=== PATIENT | female | born 1960 | race Caucasian/White ===

== ENCOUNTER → 2020-07-11 10:05 | Outpatient (BNVA) | payer BC, SELFPAY | PROVIDERS: Family Provider Family Medicine; Visit Provider Internal Medicine | DX: E03.9 Hypothyroidism, unspecified (principal); E11.65 Type 2 diabetes mellitus with hyperglycemia; F41.9 Anxiety disorder, unspecified; K75.81 Nonalcoholic steatohepatitis (NASH) | CPT/HCPCS: 99204 ==

== ENCOUNTER → 2020-07-20 15:39 | Outpatient (BNVA) | payer BC, SELFPAY | PROVIDERS: Family Provider Family Medicine; PCP Physician Assistant; Visit Provider Obstetrics & Gynecology | DX: N81.4 Uterovaginal prolapse, unspecified (principal) | CPT/HCPCS: 81000 ==

== ENCOUNTER → 2020-08-24 08:38 | Outpatient (BNVA) | payer BC, SELFPAY | PROVIDERS: Family Provider Family Medicine; PCP Physician Assistant; Visit Provider Obstetrics & Gynecology | DX: Z11.59 Encounter for screening for other viral diseases (principal) | CPT/HCPCS: 87635 ==

== ENCOUNTER 2020-08-29 12:53 | Observation (INO) | payer BC, SELFPAY ==
[2020-08-27 11:35] VITALS: BMI 29.2
[2020-08-27 12:05] LABS: Basophils # 0.1 10^3/uL (0.0-0.1); Basophils % 0.6 %; Eosinophils # 0.3 10^3/uL (0.0-0.8); Eosinophils % 2.8 %; Hemoglobin 14.6 g/dL (11.5-15.3); Lymphocytes # 3.1 10^3/uL (0.8-4.8); Lymphocytes % 35.6 %; Mean Corpuscular HGB Conc 31.1 g/dL (30.0-36.0); Mean Corpuscular Hemoglobin 29.3 pg (28.0-34.0); Mean Corpuscular Volume 94.4 fL (81-99); Mean Platelet Volume 10.7 fL (7.4-10.4); Monocytes # 0.5 10^3/uL (0.2-0.9); Neutrophils # 4.79 10^3/uL (1.8-7.7); Neutrophils % 54.7 %; Nucleated Red Blood Cells % 0 %; Platelet Count 277 10^3/cmm (130-400); Red Blood Count 4.98 10^6/uL (4.1-5.3); Red Cell Distribution Width 13.2 % (12.1-15.1); White Blood Count 8.8 10^3/uL (4.0-10.0)
--- NOTE | 2020-08-27 12:11 | P.ANESASSM_ITS ---
Pre-Anesthetic Assessment Pre-Anesthetic Assessment: Height/Weight: Height 1.7 m Weight 84.822 kg Preop Diagnosis: POP-Q stage 4 cystocele Proposed Procedure: Operation Date: 08/29/20 09:50 Proposed Procedures p Anterior Repair [id number] M81.10(Not Applicable) - Maged Nieto MD s Midurethral single incision sling(Not Applicable) - Maged Nieto MD s Laparoscopic Uterosacral Ligament Suspen(Not Applicable) - Maged Nieto MD Was Beta Camilla taken within 24 hours: N/A Social: Social History: No alcohol and No tobacco Exam: Pre-Anes Outpt Exam: alert and oriented x 3 Airway: Submandibular: WNL Cervical ROM: WNL MP: 2 Pulmonary: Pulmonary: Sleep apnea CV/HEM: CV/HEM: None reported : Comments: Cystoceole Hepatic: Hepatic: None reported GI: GI: None reported Metabolic: Metabolic: DM and Thyroid Musc/skel: Musc/skel: None reported Neuropsych: Neuropsych: None reported Anesthetic Plan: ASA status: 2 Anesthesia: General PFSH Anesthesia PFSH: Medical History Diabetes mellitus Elevated TSH Hypercholesteremia Mood swings Surgical History H/O hysterectomy with oophorectomy H/O: hysterectomy Family History Mother COPD (chronic obstructive pulmonary disease) Diabetes Father Diabetes Hypertension Grandmother Stroke Grandmother Cancer colon skin Grandfather Stroke Social History (Updated 08/27/20 @ 08:58 by Linda Murrieta RN) Smoking and tobacco status: never smoked Alcohol intake: current Alcohol intake frequency: holidays/special occasions only Substance/Drug Use: never Data Anesthesia CBC & Chem 7: 08/27/20 11:25 08/27/20 11:25 Other Labs: Laboratory Results - last 48 hr 08/27/20 11:25 WBC 8.8 RBC 4.98 Hgb 14.6 Hct 47.0 MCV 94.4 MCH 29.3 MCHC 31.1 RDW 13.2 Plt Count 277 MPV 10.7 H Neut % (Auto) 54.7 Lymph % (Auto) 35.6 [place] % (Auto) 6.0 Eos % (Auto) 2.8 Baso % (Auto) 0.6 Neut # (Auto) 4.79 Lymph # (Auto) 3.1 [place] # (Auto) 0.5 Eos # (Auto) 0.3 Baso # (Auto) 0.1 Nucleated RBC % (auto) 0 Nucleated RBCs # 0.0 Cardiac Studies: No Data to Display
[2020-08-27 12:23] LABS: Alanine Aminotransferase 26 U/L (0-33); Albumin Level 4.5 g/dL (3.5-5.2); Alkaline Phosphatase 104 IU/L (35-105); Anion Gap 20.6 (5-19); Aspartate Amino Transferase 23 U/L (0-32); Blood Urea Nitrogen 12 mg/dL (6-20); Calcium 9.5 mg/dL (8.5-10.5); Carbon Dioxide 21 mmol/L (22-29); Chloride 102 mmol/L (98-107); Globulin 3.5 g/dL (1.3-4.6); Glomerular Filtration Rate 127.2 mL/min (90-130); Glucose 229 mg/dL (65-115); Osmolality Calculated 297 mOsm/kg (285-295); Potassium 3.6 mmol/L (3.5-5.1); Sodium 140 mmol/L (136-145); Total Bilirubin 0.4 mg/dL (0.15-1.2)
[2020-08-27 13:29] LABS: Protein Urine Neg (Negative); Urine Appearance SL Hazy (CLEAR); Urine Color Straw (Yellow); pH Urine 5 (5-7)
[2020-08-27 13:30] LABS: Add Urine Microscopic? YES; Bilirubin Urine Neg (Negative); Blood Urine Neg (Negative); Glucose Urine UA 4+ (Normal); Ketones Urine Negative (Negative); Leukocyte Esterase Urine Negative (Negative); Nitrate Urine Negative (Negative); Urobilinogen Urine Norm (Negative)
[2020-08-27 13:35] LABS: Add Urine Culture? No; Bacteria Urine 2+ /hpf; Mucus Urine TRACE /hpf; RBC Urine 0-4 /hpf (0-2); Squamous Epithelial Cell Urine 0-4 /hpf (0-5); WBC Urine 0-4 /hpf (0-5)
[2020-08-29] VITALS (14 sets, daily range): BP systolic 100–127; BP diastolic 59–82; PULSE 64–75; RESP 12–21; TEMP 36.3–36.9; O2SAT 91–99
--- NOTE | 2020-08-29 08:39 | ANES.PREANE2 ---
Pre-Anesthetic Assessment Pre-Anesthetic Assessment: Height/Weight: Height 1.7 m Weight 84.822 kg Preop Diagnosis: POP-Q stage 4 cystocele Proposed Procedure: Operation Date: 08/29/20 09:50 Proposed Procedures p Anterior Repair [id number] M81.10(Not Applicable) - Maged Nieto MD s Midurethral single incision sling(Not Applicable) - Maged Nieto MD s Laparoscopic Uterosacral Ligament Suspen(Not Applicable) - Maged Nieto MD Last intake: Intake Last Liquid Date 08/28/20 Last Liquid Time 20:00 Last Solid Date 08/28/20 Last Solid Time 20:00 PFSH Anesthesia PFSH: Medical History Diabetes mellitus Elevated TSH Hypercholesteremia Mood swings Surgical History H/O hysterectomy with oophorectomy H/O: hysterectomy Family History Mother COPD (chronic obstructive pulmonary disease) Diabetes Father Diabetes Hypertension Grandmother Stroke Grandmother Cancer colon skin Grandfather Stroke Social History (Updated 08/27/20 @ 08:58 by Linda Murrieta RN) Smoking and tobacco status: never smoked Alcohol intake: current Alcohol intake frequency: holidays/special occasions only Data Anesthesia CBC & Chem 7: 08/27/20 11:25 08/27/20 11:25 Other Labs: Laboratory Results - last 48 hr 08/27/20 08/27/20 08/27/20 11:25 11:25 11:25 WBC 8.8 RBC 4.98 Hgb 14.6 Hct 47.0 MCV 94.4 MCH 29.3 MCHC 31.1 RDW 13.2 Plt Count 277 MPV 10.7 H Neut % (Auto) 54.7 Lymph % (Auto) 35.6 [place] % (Auto) 6.0 Eos % (Auto) 2.8 Baso % (Auto) 0.6 Neut # (Auto) 4.79 Lymph # (Auto) 3.1 [place] # (Auto) 0.5 Eos # (Auto) 0.3 Baso # (Auto) 0.1 Nucleated RBC % (auto) 0 Nucleated RBCs # 0.0 Sodium 140 Potassium 3.6 Chloride 102 Carbon Dioxide 21 L Anion Gap 20.6 H BUN 12 Creatinine 0.5 GFR Calculation 127.2 Glucose 229 H Calculated Osmolality 297 H Calcium 9.5 Total Bilirubin 0.4 AST 23 ALT 26 Alkaline Phosphatase 104 Total Protein 8.0 Albumin 4.5 Globulin 3.5 Urine Color Straw Urine Appearance Sl hazy Urine pH 5 Ur Specific [place] 1.010 Urine Protein Neg Urine Glucose (UA) 4+ H Urine Ketones Negative Urine Blood Neg Urine Nitrate Negative Urine Bilirubin Neg Urine Urobilinogen Norm Ur Leukocyte Esterase Negative Urine RBC 0-4 H Urine WBC 0-4 H Ur Squamous Epith Cells 0-4 H Amorphous Sediment Not Reportable Urine Bacteria 2+ H Urine Mucus Trace Blood Type Rho(D) Type Antibody Screen 08/27/20 11:25 WBC RBC Hgb Hct MCV MCH MCHC RDW Plt Count MPV Neut % (Auto) Lymph % (Auto) [place] % (Auto) Eos % (Auto) Baso % (Auto) Neut # (Auto) Lymph # (Auto) [place] # (Auto) Eos # (Auto) Baso # (Auto) Nucleated RBC % (auto) Nucleated RBCs # Sodium Potassium Chloride Carbon Dioxide Anion Gap BUN Creatinine GFR Calculation Glucose Calculated Osmolality Calcium Total Bilirubin AST ALT Alkaline Phosphatase Total Protein Albumin Globulin Urine Color Urine Appearance Urine pH Ur Specific [place] Urine Protein Urine Glucose (UA) Urine Ketones Urine Blood Urine Nitrate Urine Bilirubin Urine Urobilinogen Ur Leukocyte Esterase Urine RBC Urine WBC Ur Squamous Epith Cells Amorphous Sediment Urine Bacteria Urine Mucus Blood Type O Positive Rho(D) Type Positive Antibody Screen Negative Cardiac Studies: No Data to Display
[2020-08-29 08:43] LABS: Glucose Point of Care 208 mg/dL (70-110)
[2020-08-29] MEDS: sodium chloride 0.9% 1,000 ML 30 ML IV (08:46)
--- NOTE | 2020-08-29 10:08 | W.PM.OPSUD ---
Surgery/Procedure H&P Update DATE OF PROCEDURE: August 29, 2020 DATE H&P PERFORMED: 08/27/20 H&P UPDATE INFORMATION: I have reviewed H&P completed within last 30 days, I have examined patient prior to procedure and No changes to prior documentation PREOP DIAGNOSIS: POP-Q stage 4 cystocele PLANNED PROCEDURE: Operation Date: 08/29/20 09:50 Proposed Procedures p Anterior Repair [id number] M81.10(Not Applicable) - Maged Nieto MD s Midurethral single incision sling(Not Applicable) - Maged Nieto MD s Laparoscopic Uterosacral Ligament Suspen(Not Applicable) - Maged Nieto MD
--- NOTE | 2020-08-29 11:03 | P.ANESASSM_ITS ---
Pre-Anesthetic Assessment Pre-Anesthetic Assessment: Height/Weight: Height 1.7 m Weight 84.822 kg Preop Diagnosis: POP-Q stage 4 cystocele Proposed Procedure: Operation Date: 08/29/20 09:50 Proposed Procedures p Anterior Repair [id number] M81.10(Not Applicable) - MD wei Winters Midurethral single incision sling(Not Applicable) - MD wei Winters Laparoscopic Uterosacral Ligament Suspen(Not Applicable) - Maged Nieto MD Last intake: Intake Last Liquid Date 08/28/20 Last Liquid Time 20:00 Last Solid Date 08/28/20 Last Solid Time 20:00 Other Pertinent Information: No changes since seen and evaluated on Meds/Allergies Current Medications: Current Medications Generic Name Dose Route Start Last Admin Trade Name Freq PRN Reason Stop Dose Admin Sodium Chloride 1,000 mls @ 30 ml s/hr 08/29/20 08:30 08/29/20 08:46 Sodium Chloride 0.9% IV 08/30/20 08:29 30 mls/hr .Q24H PAYAL Administration PFSH Anesthesia PFSH: Medical History Diabetes mellitus Elevated TSH Hypercholesteremia Mood swings Surgical History H/O hysterectomy with oophorectomy H/O: hysterectomy Family History Mother COPD (chronic obstructive pulmonary disease) Diabetes Father Diabetes Hypertension Grandmother Stroke Grandmother Cancer colon skin Grandfather Stroke Social History (Updated 08/27/20 @ 08:58 by Linda Murrieta, RN) Smoking and tobacco status: never smoked Alcohol intake: current Alcohol intake frequency: holidays/special occasions only Data Anesthesia CBC & Chem 7: 08/27/20 11:25 08/27/20 11:25 Other Labs: Laboratory Results - last 48 hr 08/27/20 08/27/20 08/27/20 11:25 11:25 11:25 WBC 8.8 RBC 4.98 Hgb 14.6 Hct 47.0 MCV 94.4 MCH 29.3 MCHC 31.1 RDW 13.2 Plt Count 277 MPV 10.7 H Neut % (Auto) 54.7 Lymph % (Auto) 35.6 [place] % (Auto) 6.0 Eos % (Auto) 2.8 Baso % (Auto) 0.6 Neut # (Auto) 4.79 Lymph # (Auto) 3.1 [place] # (Auto) 0.5 Eos # (Auto) 0.3 Baso # (Auto) 0.1 Nucleated RBC % (auto) 0 Nucleated RBCs # 0.0 Sodium 140 Potassium 3.6 Chloride 102 Carbon Dioxide 21 L Anion Gap 20.6 H BUN 12 Creatinine 0.5 GFR Calculation 127.2 Glucose 229 H POC Glucose Calculated Osmolality 297 H Calcium 9.5 Total Bilirubin 0.4 AST 23 ALT 26 Alkaline Phosphatase 104 Total Protein 8.0 Albumin 4.5 Globulin 3.5 Urine Color Straw Urine Appearance Sl hazy Urine pH 5 Ur Specific [place] 1.010 Urine Protein Neg Urine Glucose (UA) 4+ H Urine Ketones Negative Urine Blood Neg Urine Nitrate Negative Urine Bilirubin Neg Urine Urobilinogen Norm Ur Leukocyte Esterase Negative Urine RBC 0-4 H Urine WBC 0-4 H Ur Squamous Epith Cells 0-4 H Amorphous Sediment Not Reportable Urine Bacteria 2+ H Urine Mucus Trace Blood Type Rho(D) Type Antibody Screen 08/27/20 08/29/20 11:25 08:40 WBC RBC Hgb Hct MCV MCH MCHC RDW Plt Count MPV Neut % (Auto) Lymph % (Auto) [place] % (Auto) Eos % (Auto) Baso % (Auto) Neut # (Auto) Lymph # (Auto) [place] # (Auto) Eos # (Auto) Baso # (Auto) Nucleated RBC % (auto) Nucleated RBCs # Sodium Potassium Chloride Carbon Dioxide Anion Gap BUN Creatinine GFR Calculation Glucose POC Glucose 208 Calculated Osmolality Calcium Total Bilirubin AST ALT Alkaline Phosphatase Total Protein Albumin Globulin Urine Color Urine Appearance Urine pH Ur Specific [place] Urine Protein Urine Glucose (UA) Urine Ketones Urine Blood Urine Nitrate Urine Bilirubin Urine Urobilinogen Ur Leukocyte Esterase Urine RBC Urine WBC Ur Squamous Epith Cells Amorphous Sediment Urine Bacteria Urine Mucus Blood Type O Positive Rho(D) Type Positive Antibody Screen Negative Cardiac Studies: No Data to Display
[2020-08-29] MEDS: estrogens Conjugated Cream 30 gm 1 APPLIC VAGINAL (11:32)
--- NOTE | 2020-08-29 12:27 | P.OP_ITS ---
Operative Report Date of procedure: August 29, 2020 Pre-op Diagnosis: POP-Q stage 4 cystocele Post-op diagnosis: same Procedure Done: Anterior colporrhaphy augmented with allograft with mid urethral sling and bilateral sacrospinous ligament fixation. Pathology: none sent Surgeon: Maged May MD Anesthesia: General Estimated blood loss (mL): 100 IV fluids (mL): 500 Urine output (mL): 400 Complications: None Findings: Cystocele stage IV Condition: stable Disposition: PACU Brief History: 59-year-old female post hysterectomy developed a cystocele stage IV associated with urinary incontinence Procedure: After obtaining informed consent, the patient was taken to the operating room and placed in the supine position, given general anesthesia, and prepped and draped in sterile fashion. The abdomen, vulva and vagina were pre pped and draped in a sterile manner. A time out procedure was performed. A vertical midline incision was made beneath the midurethra, nearly 1.5 cm length. Careful submucosal dissection was performed bilaterally up to the interior portion of the inferior pubic ramus. The insertion of adductor longus tendon on the patient?s pubic ramus was identified as reference land angelique. Palpated the notch along the internal edge of ischiopubic ramus where the adductor longus tendon and the inferior pubic ramus meet. The Altis single incision sling (SIS) was selected. With thin porcine graft the mesh of the sling was lined anteriorly and posteriorly with the graft. Then the needle of the SIS inserted aiming at the location of this notch. One of the integrated self- fixating tips place onto the needle by sliding it over the end of the needle. The needle/sling assembly was inserted toward the location of identified reference notch making sure that the flat of the handle is perpendicular to the desired path. The needle was tracked along the posterior surface of the ischiopubic ramus until the midline angelique on the mesh is approximately at the midline position under the urethra. The needle was removed and the same was repeated on the contralateral side until the appropriate sling tension under the urethra was achieved ensuring that the mesh lays flat. The vaginal mucosa was then injected in the midline with normal saline. The vaginal mucosa was scored in the midline with the Bovie approximately 1 cm medial to the urethral meatus to 1 cm distal to the [vaginal cuff/cervix]. This vaginal mucosa was then undermined and then incised in the midline with the Metzenbaum scissors. The lateral aspects of the vaginal mucosa were then grasped with the Allis clamps and the vaginal mucosa was then dissected off the underlying fascia with the Metzenbaum scissors. Again, there was noted to be quite a bit of oozing at the incision, which was controlled with cautery. After adequate dissection was performed, bilaterally. The Colpoplast Allograft is modified at time of application to fit spacea, 4 x 4 cm piece . Colpoplast Allograft placed in front of cystocele ready to be implanted with the Basement Membrane facing the vagina mucosa. Suture is placed at distal end of graft and placed towards vaginal cuff. Final suture is placed on proximal portion of the graft to complete the placement overlying the bladder. Then Interrupted vertical mattress sutures of 0 Vicryl were used to elevate the cystocele superiorly. The excessive vaginal mucosa was then trimmed with the Metzenbaum scissors. A finger is inserted through the incision in the posterior vaginal mucosa, dissecting out the rectovaginal space (RVS). The right rectal pillar (RRP) is identified. The rectal pillar can be bluntly perforated either with the [finger or with the tip of a long Miranda clamp]. A [Bresengy-Navratil] retractor is used for exposing the rectovaginal space in order to enter the pararectal space with retraction of the cardinal ligament, vagina, and rectum. Displacing the rectum to the left and the cardinal ligament and ureter anteriorly. A sponge dissector is used to bluntly dissect the sacrospinous ligament removing areolar tissue. The ischial spine was palpated directly, and a area approximately 2 cm medial to the spine was selected for insertion of the Anchorsure transvaginal sacrospinous fixation system. One end of the suture of Anchoresure system inserted through the sacrospinous ligament is placed through the muscular layer of the vagina. In a similar manner, the second suture is placed. The opposite end of the suture in the sacrospinous ligament is left free and held on a small hemostat. Then traction on this suture will draw the vaginal vault directly to the ligament, where a square knot affixes it to the sacrospinous ligament. After the angelina stich is tied the second safety stich is tied. Then the colporrhaphy/vaginal repair is carried out in routine fashion. Then the [place] catheter was removed and cystoscope was inserted. The bladder was filled with sterile water. Complete evaluation of the bladder mucosa was performed noting no lacerations, dimpling, tears, bleeding of the mucosa or muscular layers. Both ureteral orifices were identified. Prompt excretion of urine from both ureteral orifices was noted. Cystoscope was withdrawn. The [place] catheter was replaced. Excellent hemostasis was obtained. A vaginal pack is placed overnight as postoperative support for the vaginal tissues after graft placement and closure of vaginal incisions. Sponge, lap, needle, and instrument counts were correct times three. The patient was taken to the recovery room, awake and in stable condition. Associated Problem List Diagnoses (1) POP-Q stage 4 cystocele:
--- NOTE | 2020-08-29 13:27 | ANE.PACU2 ---
Inpatient post-anesthesia follow up: Airway intact: Yes Vital signs: Temperature 98.5 F Pulse Rate 70 Respiratory Rate 16 Blood Pressure 112/82 Pulse Oximetry 95 Oxygen Delivery Me thod Room Air Oxygen Flow Rate 8 Fraction of Inspir ed Oxygen Hydration adequate: Yes Nausea and vomiting: No Pain level: 3 Mental status: Baseline
[2020-08-29] MEDS: metformin 850 mg Tablet PO ×2 (16:47→20:54)
[2020-08-29] MEDS: dextrose 5%-lactated ringers 1,000 ML 125 ML IV (16:49)
[2020-08-29] MEDS: acetaminophen 325 mg Tablet 650 MG PO (17:33)
[2020-08-29] MEDS: ketorolac 30 mg/mL INJ IVP (20:54)
[2020-08-30] MEDS: dextrose 5%-lactated ringers 1,000 ML 125 ML IV (00:10)
[2020-08-30 04:00] VITALS: BP 91/58; PULSE 79; RESP 14; O2SAT 96
[2020-08-30] MEDS: ketorolac 30 mg/mL INJ IVP (04:15)
[2020-08-30 05:22] LABS: Hematocrit 34.8 % (37.0-47.0); Hemoglobin 10.9 g/dL (11.5-15.3); Mean Corpuscular HGB Conc 31.3 g/dL (30.0-36.0); Mean Corpuscular Hemoglobin 29.9 pg (28.0-34.0); Mean Corpuscular Volume 95.3 fL (81-99); Mean Platelet Volume 10.4 fL (7.4-10.4); Platelet Count 200 10^3/cmm (130-400); Red Blood Count 3.65 10^6/uL (4.1-5.3); Red Cell Distribution Width 13.2 % (12.1-15.1); White Blood Count 11.8 10^3/uL (4.0-10.0)
--- NOTE | 2020-08-30 05:45 | PC.NURSE ---
C[place]ola and vaginal packing removed at this time. Minimal bleeding noted on dressing. Patient tolerated procedure well and instructed to notify this nurse when needing to void.
[2020-08-30] MEDS: venlafaxine 75 mg Tablet PO (09:01)
[2020-08-30] MEDS: pioglitazone 30 mg Tablet 15 MG PO (09:01)
[2020-08-30] MEDS: sitagliptin 100 mg Tablet PO (09:01)
[2020-08-30] MEDS: metformin 850 mg Tablet PO (09:01)
[2020-08-30] MEDS: multivitamin therapeutic Tablet 1 TAB PO (09:03)
[2020-08-30] MEDS: levothyroxine 100 mcg Tablet PO (09:03)
[2020-08-30] MEDS: atorvastatin 40 mg Tablet PO (09:03)
[2020-08-30 09:54] LABS: Glucose Point of Care 238 mg/dL (70-110)
[2020-08-30 10:00] VITALS: BP 116/72; PULSE 75; RESP 16; TEMP 36.5; O2SAT 96
--- NOTE | 2020-08-30 11:21 | ANE.PACU2 ---
Inpatient post-anesthesia follow up: Airway intact: Yes Vital signs: Temperature 97.7 F Pulse Rate 75 Respiratory Rate 16 Blood Pressure 116/72 Pulse Oximetry 96 Oxygen Delivery Me thod Room Air Oxygen Flow Rate 8 Fraction of Inspir ed Oxygen Hydration adequate: Yes Nausea and vomiting: No Pain level: 1 Mental status: Baseline
--- NOTE | 2020-08-30 12:08 | PM.OBGYDC ---
Discharge Providers [employer]ACH[employer] BACK TENDER Date of Admission: 08/29/20 12:53 Date of Discharge: 08/30/20 Attending Provider at Admission: Maged Nieto MD Attending Provider at Discharge: Maged Nieto MD Primary Care Provider: Miranda Villarreal Diagnoses at Discharge Discharge Diagnosis (1) POP-Q stage 4 cystocele: Status: Acute Reason for Visit Reason for Visit: Cystocele pop Q4 Hospital Course Hospital Course 59-year-old female post hysterectomy with cystocele stage IV with urinary incontinence. was admitted for planned anterior colporrhaphy augmented with allograft week mid urethral sling and sacrospinous ligament fixation. Procedures were performed without complication. Postop observation was uneventful. PVR within normal limits. She is ambulating without difficulty. Tolerating diet well. She is hemodynamically stable and afebrile. Physical Exam Narrative: EXAM NARRATIVE: GA: Alert and oriented ?3. HEENT: WNL. Heart: Regular rate and rhythm. Lungs: Clear to auscultation bilaterally. Abdomen: Bowel sounds present, nontender. MAIL CARRIER: No bleeding. Extremities: No edema, no cyanosis, no calves pain. Urinary Catheter Management^: [place]: Cath Placed During This Visit: yes Urinary Catheter Date of Insertion: 08/29/20 Urinary Catheter Time of Insertion: 11:00 Discharge Data Data Completed and Pending: Labs from last 24 hours 08/30/20 08/30/20 09:50 05:00 WBC 11.8 H RBC 3.65 L Hgb 10.9 L Hct 34.8 L MCV 95.3 MCH 29.9 MCHC 31.3 RDW 13.2 Plt Count 200 MPV 10.4 POC Glucose 238 Vitals: Last Vital Signs Temp 97.7 F 08/30/20 10:00 Pulse 75 08/30/20 10:00 Resp 16 08/30/20 10:00 BP 116/72 08/30/20 10:00 Pulse Ox 96 08/30/20 10:00 Discharge Plan Discharge Patient Disposition: Home Condition: Stable Prescriptions: [place] 5-325 mg tablet 1 tab PO Q4H PRN (Reason: pain) Qty: 30 RF: 0 ferrous sulfate 325 mg (65 mg iron) tablet 325 mg PO BID Qty: 60 RF: 0 ibuprofen 800 mg tablet 800 mg PO TID PRN (Reason: pain) Qty: 60 RF: 0 Continued Januvia 100 mg tablet 100 mg PO DAILY RF: 0 Farxiga 10 mg tablet 10 mg PO DAILY RF: 0 atorvastatin [Lipitor] 40 mg tablet 40 mg PO DAILY RF: 0 multivitamin Tablet 1 tab PO DAILY RF: 0 venlafaxine 75 mg tablet 75 mg PO DAILY RF: 0 pioglitazone 15 mg tablet 15 mg PO DAILY Qty: 30 RF: 3 levothyroxine 100 mcg capsule 100 mcg PO DAILY Qty: 30 RF: 5 metformin 850 mg tablet 850 mg PO TID Qty: 90 RF: 5 Stool Softener 50 mg Capsule 50 mg PO DAILY PRN (Reason: Constipation) RF: 0 Discharge Orders: Discharge Order (Routine); Ordered 08/30/20 Ordered By: Maged Nieto Referrals: Maged Nieto MD [Physician] - 2 weeks Discharge Diet: As Directed Discharge Activity: Increase activity as tolerated Patient Instructions: Anterior Vaginal Repair (DC), Bladder Sling Procedures (DC) Activity Restrictions/Additional Instructions: 1. Please call [facility] on next working day to make your post-operative appointment in 2 weeks. 2. Please stay home until you come back to the clinic on first post-operative check up. 3. Please follow instructions on your medications CAREFULLY. 4. If you have abdominal incision, do not cover it unless dressing is necessary because of drainage. OK to shower, but avoid bath. Leave steri-strips until they fall off. If they are still on one week after surgery, you may remove them. 5. If you had vaginal surgery, your doctor may instuct you to take SITZ bath. 6. Yellow, blood tinged odorous vaginal discharge is usually normal after hysterectomy or vaginal surgeries. 7. No sexual intercourse, tampons, or douches until you are completely released from the post-operative care. 8. Avoid constipation by eating right and maybe using some Metamucil or Milk of Magnesia. 9. All presciption refills are given during the working hours. Please do no wait till it runs out. Call the clinic at [phone] before your medication runs out. The clinic will get in touch with your doctor to prescribe medications if necessary. 10. Please remain within 40 mile radius from our hospital because emergencies do happen now and then during the post-operative period. 11. If you have stairs at home, take one step at a time slowly and minimize the number of trips. It helps to stay in one floor for the next few days. No lifting except what you can lift by one hand until you are released from the post-operative care. 12. Driving is discouraged until you are well healed. It may be 3-4 weeks before you feel strong enough to drive. You should be able to turn and look throught the rear window without pain and you should be able to push the brake pedal very hard without pain before you drive. No fast rules, but SAFETY should be your primary concern. DO NOT drive if you are on sedating medications such as narcotics. 13. Call the clinic (during working hours) to make urgent appointment or go to the Emergency room, if any of the following occurs: i. Vaginal bleeding becomes heavy, more than a period. ii. Incision becomes red and sore, or drains pus. iii. Your temperature is over 100.4 or you have chill. iv. IV site becomes red and swollen (a little ``knot?? is usually OK) v. Persistent nausea and vomiting vi. Persistent constipation or diarrhea vii. Rash or allergic reaction to medications. Discharge Attestations [employer] TENDER Time Spent in Discharge Care*: greater than 30 min Coding Level of Care Code Acute Public Affairs Director for g Fwd Diagnoses POP-Q stage 4 cystocele N81.10
[2020-08-30 12:26] VITALS: BP 121/75; PULSE 99; RESP 16; TEMP 36.8
== END 2020-08-30 12:36 | disposition home or self-care (01) ==
LOC: OBGYN 12:53
PROVIDERS: Admitting Provider Obstetrics & Gynecology; PCP Physician Assistant; Visit Provider Obstetrics & Gynecology
PROC: 0JQC0ZZ Repair Pelvic Region Subcutaneous Tissue and Fascia, Open Approach (ICD-10-PCS; CPT 57240; principal; 2020-08-29 09:50)
PROC: (CPT 57288; 2020-08-29 09:50)
PROC: (CPT 57283; 2020-08-29 09:50)
DX: N81.10 Cystocele, unspecified (principal); E11.9 Type 2 diabetes mellitus without complications; E07.9 Disorder of thyroid, unspecified; E78.00 Pure hypercholesterolemia, unspecified; R32 Unspecified urinary incontinence; Z90.710 Acquired absence of both cervix and uterus
CPT/HCPCS: 57260; 57267; 12345; 36415; 36416; 51798; 80053; 81001; 82962; 85025; 85027; 86850; 86900; 96361; 96365; 96375; C1713; C1762; G0378; J0690; J1885; J2405; J2704; J3010; J3490; J7030

== ENCOUNTER → 2020-09-12 14:11 | Outpatient (BNVA) | payer BC, SELFPAY | PROVIDERS: PCP Physician Assistant; Visit Provider Internal Medicine | DX: E03.9 Hypothyroidism, unspecified (principal); E11.65 Type 2 diabetes mellitus with hyperglycemia; F41.9 Anxiety disorder, unspecified; K75.81 Nonalcoholic steatohepatitis (NASH) | CPT/HCPCS: 99214 ==

== ENCOUNTER → 2020-12-12 08:23 | Outpatient (BNVA) | payer BC, SELFPAY | PROVIDERS: PCP Physician Assistant; Visit Provider Internal Medicine | DX: E03.9 Hypothyroidism, unspecified (principal); E11.65 Type 2 diabetes mellitus with hyperglycemia; K75.81 Nonalcoholic steatohepatitis (NASH) | CPT/HCPCS: 99214 ==

== ENCOUNTER → 2021-08-22 10:03 | Outpatient (BNVA) | payer BC, SELFPAY | PROVIDERS: PCP Physician Assistant; Visit Provider Internal Medicine | DX: E11.9 Type 2 diabetes mellitus without complications (principal); E78.00 Pure hypercholesterolemia, unspecified; E03.9 Hypothyroidism, unspecified; K75.81 Nonalcoholic steatohepatitis (NASH); R00.2 Palpitations; Z79.84 Long term (current) use of oral hypoglycemic drugs | CPT/HCPCS: 99213 ==

== ENCOUNTER 2021-09-26 15:10 | Outpatient (CLI) | payer BC, SELFPAY ==
[2021-09-26 16:01] LABS: Estmated Average Glucose 169; Free T4 Free Thyroxine 1.25 ng/dL (0.82-1.77); Hemoglobin A1C 7.5 % (4.0-6.0); Thyroid Stimulating Hormone 1.34 uIU/mL (0.27-4.20)
== END 2021-09-26 15:11 | disposition home or self-care (01) ==
LOC: LAB 15:16
PROVIDERS: PCP Physician Assistant; Visit Provider Internal Medicine
DX: E03.9 Hypothyroidism, unspecified (principal)
CPT/HCPCS: 83036; 84439; 84443

== ENCOUNTER 2022-02-10 10:39 | Outpatient (CLI) | payer BC, SELFPAY ==
[2022-02-10 12:20] LABS: Add Urine Microscopic? NO; Charge for UA Resulting for Rev
[2022-02-10 12:29] LABS: Bilirubin Urine Neg (Negative); Blood Urine Neg (Negative); Glucose Urine UA 4+ (Normal); Ketones Urine 1+ (Negative); Leukocyte Esterase Urine Negative (Negative); Nitrate Urine Negative (Negative); Protein Urine Neg (Negative); Urine Appearance Clear (CLEAR); Urine Color Yellow (Yellow); Urobilinogen Urine Norm (Negative); pH Urine 5 (5-7)
== END 2022-02-10 10:40 | disposition home or self-care (01) ==
PROVIDERS: PCP Physician Assistant; Visit Provider Internal Medicine
DX: E03.9 Hypothyroidism, unspecified (principal); E11.65 Type 2 diabetes mellitus with hyperglycemia; E78.00 Pure hypercholesterolemia, unspecified
CPT/HCPCS: 81003

== ENCOUNTER 2022-05-02 16:48 | Outpatient (CLI) | payer BC, SELFPAY ==
[2022-05-02 17:38] LABS: Estmated Average Glucose 209; Hemoglobin A1C 8.9 % (4.0-6.0)
[2022-05-02 17:42] LABS: Alanine Aminotransferase 32 U/L (0-33); Albumin Level 4.3 g/dL (3.5-5.2); Alkaline Phosphatase 115 IU/L (35-105); Anion Gap 19.6 (5-19); Aspartate Amino Transferase 26 U/L (0-32); Blood Urea Nitrogen 15 mg/dL (6-20); Calcium 9.2 mg/dL (8.5-10.5); Carbon Dioxide 22 mmol/L (22-29); Chloride 98 mmol/L (98-107); Chol HDL Ratio 3.66 mg/dL (0.0-4.40); Cholesterol 128 mg/dL (0-200); Globulin 3.4 g/dL (1.3-4.6); Glomerular Filtration Rate 102.3 mL/min (90-130); Glucose 193 mg/dL (65-115); HDL Cholesterol 35 mg/dL (60-100); LDL Cholesterol Calculated 27 mg/dL (50-129); LDL HDL Ratio 0.77 RATIO (0.00-3.22); Osmolality Calculated 288 mOsm/kg (285-295); Potassium 3.6 mmol/L (3.5-5.1); Sodium 136 mmol/L (136-145); Thyroid Stimulating Hormone 2.81 uIU/mL (0.27-4.20); Total Bilirubin 0.3 mg/dL (0.15-1.2); Total Protein 7.7 g/dL (6.6-8.7); Triglycerides 330 mg/dL (0-150)
[2022-05-02 20:36] LABS: Free T4 Free Thyroxine 1.26 ng/dL (0.82-1.77)
== END 2022-05-02 16:49 | disposition home or self-care (01) ==
LOC: LAB 16:50
PROVIDERS: PCP Physician Assistant; Visit Provider Internal Medicine
DX: E11.9 Type 2 diabetes mellitus without complications (principal)
CPT/HCPCS: 80053; 80061; 83036; 84439; 84443

== ENCOUNTER 2023-01-06 09:06 | Outpatient (CLI) | payer OTHER, SELFPAY ==
[2023-01-06 10:31] LABS: Estmated Average Glucose 206; Hemoglobin A1C 8.8 % (4.0-6.0)
[2023-01-06 10:34] LABS: Alanine Aminotransferase 28 U/L (0-33); Albumin Level 4.1 g/dL (3.5-5.2); Alkaline Phosphatase 83 U/L (35-105); Anion Gap 16.5 (5-19); Aspartate Amino Transferase 19 U/L (0-32); Blood Urea Nitrogen 13 mg/dL (8-23); Calcium 9.3 mg/dL (8.5-10.5); Carbon Dioxide 24 mmol/L (22-29); Chloride 104 mmol/L (98-107); Chol HDL Ratio 3.85 mg/dL (0.0-4.40); Cholesterol 131 mg/dL (0-200); Free T4 Free Thyroxine 1.52 ng/dL (0.82-1.77); Globulin 3.3 g/dL (1.3-4.6); Glomerular Filtration Rate 125.9 mL/min (90-130); Glucose 243 mg/dL (65-115); HDL Cholesterol 34 mg/dL (60-100); LDL Cholesterol Calculated 45 mg/dL (50-129); LDL HDL Ratio 1.32 RATIO (0.00-3.22); Osmolality Calculated 298 mOsm/kg (285-295); Potassium 4.5 mmol/L (3.5-5.1); Sodium 140 mmol/L (136-145); Thyroid Stimulating Hormone 0.39 uIU/mL (0.27-4.20); Total Bilirubin 0.7 mg/dL (0.15-1.2); Total Protein 7.4 g/dL (6.6-8.7); Triglycerides 260 mg/dL (0-150)
== END 2023-01-06 09:07 | disposition home or self-care (01) ==
LOC: LAB 09:11
PROVIDERS: PCP Physician Assistant; Visit Provider Internal Medicine
DX: E03.9 Hypothyroidism, unspecified (principal); E11.65 Type 2 diabetes mellitus with hyperglycemia; E78.00 Pure hypercholesterolemia, unspecified; K75.81 Nonalcoholic steatohepatitis (NASH)
CPT/HCPCS: 36415; 80053; 80061; 83036; 84439; 84443

== ENCOUNTER 2023-04-17 08:43 | Outpatient (CLI) | payer OTHER, SELFPAY ==
[2023-04-17 09:20] LABS: Estmated Average Glucose 235; Hemoglobin A1C 9.8 % (4.0-6.0)
[2023-04-17 09:36] LABS: Alanine Aminotransferase 24 U/L (0-33); Albumin Level 3.9 g/dL (3.5-5.2); Alkaline Phosphatase 103 U/L (35-105); Blood Urea Nitrogen 10 mg/dL (8-23); Calcium 9.2 mg/dL (8.5-10.5); Carbon Dioxide 26 mmol/L (22-29); Chol HDL Ratio 5.82 mg/dL (0.0-4.40); Cholesterol 198 mg/dL (0-200); Free T4 Free Thyroxine 1.35 ng/dL (0.82-1.77); Globulin 3.1 g/dL (1.3-4.6); Glomerular Filtration Rate 162.8 mL/min (90-130); Glucose 247 mg/dL (65-115); HDL Cholesterol 34 mg/dL (60-100); Thyroid Stimulating Hormone 0.95 uIU/mL (0.27-4.20); Total Bilirubin 0.4 mg/dL (0.15-1.2); Triglycerides 434 mg/dL (0-150)
[2023-04-17 09:40] LABS: Creatinine Urine, Random 49 mg/dL (28-217); Microalbum Creatinine Ratio Ur 20 mg/dL (0-20); Microalbumin Random Urine 1 ug/dL (0-20)
[2023-04-17 09:40] LABS: Aspartate Amino Transferase 18 U/L (0-32); Potassium 4.3 mmol/L (3.5-5.1)
[2023-04-17 10:20] LABS: Anion Gap 16.3 (5-19); LDL Cholesterol Direct 103 mg/dL (0-100)
[2023-04-17 10:23] LABS: Chloride 101 mmol/L (98-107); Osmolality Calculated 295 mOsm/kg (285-295); Sodium 139 mmol/L (136-145)
[2023-04-18 12:55] LABS: T3 Total 95 ng/dL (76-181)
== END 2023-04-17 08:44 | disposition home or self-care (01) ==
PROVIDERS: PCP Physician Assistant; Visit Provider Internal Medicine
DX: E11.65 Type 2 diabetes mellitus with hyperglycemia (principal); E78.00 Pure hypercholesterolemia, unspecified
CPT/HCPCS: 36415; 80053; 80061; 82044; 83036; 83721; 84439; 84443; 84480

== ENCOUNTER → 2023-04-20 14:46 | Outpatient (BNVA) | payer OTHER, SELFPAY | PROVIDERS: PCP Physician Assistant; Visit Provider Internal Medicine | DX: E11.65 Type 2 diabetes mellitus with hyperglycemia (principal); E03.9 Hypothyroidism, unspecified; K75.81 Nonalcoholic steatohepatitis (NASH); E78.00 Pure hypercholesterolemia, unspecified; Z79.890 Hormone replacement therapy; Z79.84 Long term (current) use of oral hypoglycemic drugs; Z79.4 Long term (current) use of insulin | CPT/HCPCS: 99214 ==

== ENCOUNTER → 2023-07-30 10:38 | Outpatient (BNVA) | payer OTHER, SELFPAY | PROVIDERS: PCP Physician Assistant; Visit Provider Internal Medicine | DX: E03.9 Hypothyroidism, unspecified (principal); K75.81 Nonalcoholic steatohepatitis (NASH); E78.00 Pure hypercholesterolemia, unspecified; E11.65 Type 2 diabetes mellitus with hyperglycemia; Z79.4 Long term (current) use of insulin; Z79.84 Long term (current) use of oral hypoglycemic drugs; Z79.890 Hormone replacement therapy | CPT/HCPCS: 99214 ==

== ENCOUNTER → 2024-03-11 10:37 | Outpatient (BNVA) | payer OTHER, SELFPAY | PROVIDERS: PCP Family Medicine; Visit Provider Internal Medicine | DX: E03.9 Hypothyroidism, unspecified (principal); K75.81 Nonalcoholic steatohepatitis (NASH); E78.00 Pure hypercholesterolemia, unspecified; E11.65 Type 2 diabetes mellitus with hyperglycemia; Z79.84 Long term (current) use of oral hypoglycemic drugs; Z79.4 Long term (current) use of insulin; Z79.890 Hormone replacement therapy | CPT/HCPCS: 99214 ==

== ENCOUNTER → 2024-09-30 12:01 | Outpatient (BNVA) | payer OTHER, SELFPAY | PROVIDERS: PCP Family Medicine; Visit Provider Family Medicine | DX: E11.9 Type 2 diabetes mellitus without complications (principal); E78.00 Pure hypercholesterolemia, unspecified; E03.9 Hypothyroidism, unspecified; E11.65 Type 2 diabetes mellitus with hyperglycemia | CPT/HCPCS: 80053; 80061; 82043; 83036; 84439; 84443 ==

== ENCOUNTER → 2025-03-30 09:10 | Outpatient (BNVA) | payer SELFPAY | PROVIDERS: PCP Family Medicine; Visit Provider Dermatology | DX: Z01.89 Encounter for other specified special examinations (principal) | CPT/HCPCS: 80053; 80061; 83036; 84443; 85025 ==

== ENCOUNTER → 2025-06-30 10:31 | Outpatient (BNVA) | payer OTHER, SELFPAY | PROVIDERS: PCP Family Medicine; Visit Provider Family Medicine | DX: E11.65 Type 2 diabetes mellitus with hyperglycemia (principal) | CPT/HCPCS: 80053; 83036 ==

== ENCOUNTER → 2025-08-27 12:10 | Outpatient (BNVA) | payer OTHER, SELFPAY | PROVIDERS: PCP Family Medicine; Visit Provider Emergency Medicine | DX: R10.A1 Flank pain, right side (principal) | CPT/HCPCS: 81000 ==

== ENCOUNTER 2025-09-13 11:31 | Emergency (ER) | payer OTHER, SELFPAY ==
--- NOTE | 2025-09-13 11:33 | XRR_ITS ---
PROCEDURE INFORMATION: Exam: XR Chest Exam date and time: 09/13/2025 12:03 PM Age: 64 years old Clinical indication: Injury or trauma; Other: Not specified; Blunt trauma (contusions or hematomas); Additional info: Chest injury TECHNIQUE: Imaging protocol: Radiologic exam of the chest. Views: 2 views. COMPARISON: No relevant prior studies available. FINDINGS: Lungs: Unremarkable. No consolidation. Pleural spaces: Unremarkable. No pleural effusion. No pneumothorax. Heart/Mediastinum: Unremarkable. No cardiomegaly. Bones/joints: Unremarkable. XR/XR chest 2V* [id number] IMPRESSION: No definite acute findings. CT could be considered for further evaluation if patient is symptomatic.
--- OUTSIDE RECORDS SUMMARY | 2025-09-13 11:39 | XMS_ITS | Clinical Summary ---
Author Organization [facility] Address [address] [place]: Epic Prelude ADT [place] [address] Care Team Providers Care Temperature Regulator Pyrometer Name Role Phone Alfonzo Dennis MD Primary Care Provider [phone] Allergies No known active allergies Active Problems Problem Noted Date Diagnosed Date Tinnitus 10/05/2012 Asymmetric SNHL (sensorineural hearing loss) Chronic rhinitis 10/05/2012 Immunizations Immunization Administration Dates Next Due (ADACEL/BOOSTRIX)(10 YR UP) TDAP VACCINE, 0.5ML, IM 03/28/2010 Family History Medical History Relation Name Comments Colon Cancer Maternal Grandmother Relation Name Status Comments Maternal Grandmother Social History Tobacco Use Types Packs/Day Years Used Date Smoking Tobacco: Never Alcohol Use Standard Drinks/Week Comments No 0 (1 standard drink = 0.6 oz pur e alcohol) Comments Unknown Sex and Gender Information Value Date Recorded Sex Assigned at Not on file Legal Sex Female 12:05 PM STAFF RN Gender Identity Not on file Sexual Orientation Not on file Last Filed Vital Signs Vital Sign Reading Time Taken Comments Blood Pressure 125/78 05/24/2021 4:04 PM CDT Pulse 105 05/24/2021 4:04 PM CDT Temperature 38.3 C (101 F) 05/24/2021 4:04 PM CDT Respiratory Rate 18 05/24/2021 4:04 PM CDT Oxygen Saturation 96% 05/24/2021 4:04 PM CDT Inhaled Oxygen Concentration - - Weight - - Height - - Body Mass Index - - Plan of Treatment Health Maintenance Due Date Last Done Comments COLORECTAL SCREENING 1980 Colorectal Cancer Screening 1980 HPV/Cotest (21-29) 1983 CERVICAL CANCER SCREENING 1992 HPV/Cotest (30-65) 1992 PAP SMEAR 1992 BREAST CANCER SCREENING 2002 FIT-DNA Q 3 years 2007 FIT/FOBT Q 1 year 2007 Flex Sig/CT Colonography Q 5 years 2007 ZOSTER VACCINE (1 of 2) 2012 DTAP/TDAP/TD VACCINES (2 - Td or Tdap) 03/28/2020 INFLUENZA VACCINE (#1) 2025 RSV VACCINE (60+ or ) (1 - 1-dose 75+ series) 2037 Insurance [id number] [place] [address] [facility] [employer] PPO Care Teams Temperature Regulator Pyrometer Relationship Specialty Start Date End Date Alfonzo Dennis MD [address] [place] [address] PCP - General Family Practice 09/14/12
--- OUTSIDE RECORDS SUMMARY | 2025-09-13 11:39 | XMS_ITS | Encounter Summary ---
Author Organization [facility] Address [address] [place] [address] Care Team Providers Care Vice President Integrated Name Role Phone Alfonzo Dennis MD Primary Care Provider [phone] Encounter Details Date Type Department Care Team ([facility] Contact Info) Description 10/10/2002 Outpatient Historical [facility] FY06 Cordell Jimenez MD NO ADDRESS ON FILE Social History Tobacco Use Types Packs/Day Years Used Date Smoking Tobacco: Never Assessed Comments Unknown Sex and Gender Information Value Date Recorded Sex Assigned at Not on file Legal Sex Female 4:23 AM REMEDIAL PROJECT MANAGER Gender Identity Not on file Sexual Orientation Not on file documented as of this encounter Plan of Treatment Not on file documented as of this encounter Visit Diagnoses Not on filedocumented in this encounter Care Teams Vice President Integrated Relationship Specialty Start Date End Date Alfonzo Dennis MD [address] [place] [address] PCP - General Family Practice 09/14/12 documented as of this encounter
--- OUTSIDE RECORDS SUMMARY | 2025-09-13 11:39 | XMS_ITS | Clinical Summary ---
Author Organization [facility] Address [address] [place] [address] Phone Care Team Providers Care Highway Technician Name Role Phone Alfonzo Dennis MD Primary Care Provider [phone] Allergies No known active allergies Medications levothyroxine (SYNTHROID) 100 mcg Oral tablet Take 100 mcg by mouth daily. Active DOCUSATE CALCIUM (STOOL SOFTENER ORAL) Take by mouth daily. Active ESTROGENS, CONJUGATED (CONJUGATED ESTROGENS ORAL) Take by mouth. Active FLUoxetine (PROZAC) 10 mg Oral capsule Take 10 mg by mouth daily. Active Fluticasone Furoate (VERAMYST) 27.5 mcg/actuation Both Nostril SpSn Administer 2 Sprays in each nostril daily. 10 Gram 11 3 Active Active Problems Problem Noted Date Diagnosed Date [...] on file Legal Sex Female 4:23 AM MANAGER OF CASE Gender Identity Not on file Sexual Orientation Not on file Last Filed Vital Signs Vital Sign Reading Time Taken Comments Blood Pressure 127/77 11/23/2012 2:16 PM MANAGER OF CASE Pulse 83 11/23/2012 2:16 PM MANAGER OF CASE Temperature 36.4 C (97.5 F) 03/19/2010 10:50 AM CDT Respiratory Rate 18 03/19/2010 1:02 PM CDT Oxygen Saturation 99% 03/19/2010 1:02 PM CDT Inhaled Oxygen Concentration - - Weight 94.3 kg (208 lb) 11/23/2012 2:16 PM MANAGER OF CASE Height 171.5 cm (5' 7.5 ) 11/23/2012 2:16 PM MANAGER OF CASE Body Mass Index 32.1 11/23/2012 2:16 PM MANAGER OF CASE Plan of Treatment Health Maintenance Due Date Last Done Comments HPV/Cotest (21-29) 1983 HPV/Cotest (30-65) 1992 BREAST CANCER SCREENING 2002 CERVICAL CANCER SCREENING 08/11/2004 PAP SMEAR 08/11/2004 08/11/2001 FIT-DNA Q 3 years 2007 FIT/FOBT Q 1 year 2007 Flex Sig/CT Colonography Q 5 years 2007 ZOSTER VACCINE (1 of 2) 2012 COLORECTAL SCREENING 03/19/2015 03/19/2010, 03/19/20 10 Colorectal Cancer Screening 03/19/2015 DTAP/TDAP/TD VACCINES (2 - Td or Tdap) 03/28/2020 INFLUENZA VACCINE (#1) 2025 RSV VACCINE (60+ or ) (1 - 1-dose 75+ series) 2037 Insurance [employer] Directives For more information, please contact: [phone] * Full Code (Latest Code Status on File) Date Activated Date Inactivated Comments 03/19/2010 10:54 AM 03/20/2010 2:[address] Technician Relationship Specialty Start Date End Date Alfonzo Dennis MD [address] [place] [address] PCP - General Family Practice 09/14/12
--- OUTSIDE RECORDS SUMMARY | 2025-09-13 11:39 | XMS_ITS | Encounter Summary ---
Author Organization [facility] Address [address] [place] [address] Care Team Providers Care Electric Stove Mechanic Name Role Phone Alfonzo Dennis MD Primary Care Provider [phone] Encounter Details Date Type Department Care Team (Latest Contact Info) Description 08/11/2001 Outpatient Historical [facility] [employer] [employer] [address] [place] [address] Cordell Jimenez MD NO ADDRESS ON FILE Gynecologic examination (Primary Dx); Unspecified symptom associated with female genital organs Social History Tobacco Use Types Packs/Day Years Used Date Smoking Tobacco: Never Assessed Comments Unknown Sex and Gender Information Value Date Recorded Sex Assigned at Not on file Legal Sex Female 4:23 AM HEALTH SUPPORT SPECIALIST Gender Identity Not on file Sexual Orientation Not on file documented as of this encounter Plan of Treatment Not on file documented as of this encounter Visit Diagnoses Diagnosis Gynecologic examination- Primary Gynecological examination Unspecified symptom associated with female genital organs documented in this encounter Care Teams Electric Stove Mechanic Relationship Specialty Start Date End Date Alfonzo Dennis MD [address] [place] [address] PCP - General Family Practice 09/14/12 documented as of this encounter
[2025-09-13 11:43] VITALS: BP 138/82; PULSE 86; TEMP 36.4; O2SAT 97; BMI 29.7
--- NOTE | 2025-09-13 12:21 | ED_ITS ---
HPI - Trauma General: Chief Complaint: Trauma Stated Complaint: hit in chest by gate then grandbaby Time Seen by Provider: 09/13/25 12:20 History of Present Illness: 64-year-old female with a history of zoey betes, hyperlipidemia, obstructive sleep apnea, anxiety and VALLEJO who presents emergency room with sternal chest pain. She says this started a couple weeks ago when she was hit in the chest with a gate. Hurt pretty bad for a while but then improved. A toddler grandchild of may nuñez slammed her head backwards into her chest and it started hurting again. Said she is very tender to the touch. Also has pain with breathing. Also had trouble laying in different positions and had to sleep upright last night. No cough. No fever. No edema. No altered mental status. Related Data Home Medications ?Medication ?Instructions ?Recorded ?Confirmed multivitamin 1 tab PO DAILY 07/11/2008/20 Previous Rx's ?Medication ?Instructions ?Recorded lancets (OneTouch UltraSoft #200 ea 10/23/21 Lancets) blood sugar diagnostic (OneTouch #100 strips 01/30/23 Ultra Test strips) pen needle, diabetic 31 gauge x #200 ea 02/09/2401/01 (TechLITE Pen Needle) dapagliflozin propanediol 10 mg See Rx Instructions .R oute 10/04/24 tablet (Farxiga) .COMPLEX #90 tabs levothyroxine 100 mcg tablet See Rx Instructions .Rout e 10/04/24 .COMPLEX #90 tabs insulin glargine 100 unit/mL (3 56 unit (0.56 mL) SUBC UT BID 30 06/02/25 mL) subcutaneous pen (Lantus days #30 mL Solostar U-100 Insulin) atorvastatin 40 mg tablet See Rx Instructions .Route 0 06/30/25 .COMPLEX #90 tabs metformin 750 mg tablet,extended 750 mg PO BID #180 ta bs 06/30/25 release 24 hr venlafaxine 150 mg 150 mg PO QAM #90 caps 06/30 capsule,extended release 24 hr dulaglutide 3 mg/0.5 mL See Rx Instructions .Route 1 10/21/24 subcutaneous pen injector .COMPLEX #2 mL (Trulicity) cefdinir 300 mg capsule 300 mg PO BID 14 days #28 ca ps 08/27/25 hydrocodone 5 mg-acetaminophen 325 1 tab PO Q6H PRN pa in #20 tabs 09/13/25 mg tablet polyethylene glycol 3350 17 17 g PO DAILY #510 grams 1 11/13/24 gram/dose oral powder (Miralax) Allergies Allergy/AdvReac Type Severity Reaction Status Date / Time No Known Allergies Allergy Verified 09/13/25 11:50 Review of Systems Narrative: Constitutional symptoms: Negative except as documented in HPI. Skin symptoms: Negative except as documented in HPI. Eye symptoms: Negative except as documented in HPI. ENMT symptoms: Negative except as documented in HPI. Respiratory symptoms: Negative except as documented in HPI. Cardiovascular symptoms: Negative except as documented in HPI. Gastrointestinal symptoms: Negative except as documented in HPI. Genitourinary symptoms: Negative except as documented in HPI. Musculoskeletal symptoms: Negative except as documented in HPI. Neurologic symptoms: Negative except as documented in HPI. Psychiatric symptoms: Negative except as documented in HPI. Endocrine symptoms: Negative except as documented in HPI. PFS ED PFSH: Medical History (Updated 09/13/25 @ 13:25 by Jenni Hennessy MD) Diabetes mellitus Elevated TSH Mood swings Hypercholesteremia Surgical History H/O bladder repair surgery 08/29/2020- anterior colporrhaphy augmented with allograft with mi urethral sling and bilateral sacrospinous ligament fixation performed by Dr. Nieto at [facility] H/O: hysterectomy H/O hysterectomy with oophorectomy Family History Mother COPD (chronic obstructive pulmonary disease) Diabetes Father Diabetes Hypertension CAD (coronary artery disease) Grandmother Stroke Grandmother Cancer colon skin Grandfather Stroke Social History Smoking and tobacco/nicotine status: never used tobacco/nicotine Alcohol intake: current Alcohol intake frequency: holidays/special occasions only Substance/Drug Use: never Physical Exam Narrative: EXAM NARRATIVE: General: Alert, no acute distress. Skin: Warm, dry. Head: Normocephalic, atraumatic. Neck: Supple, trachea midline. Eye: Extraocular movements are intact. Ears, nose, mouth and throat: mucosa moist. Cardiovascular: Regular, Normal peripheral perfusion. Respiratory: Lungs are clear to auscultation, respirations are non-labored, breath sounds are equal, Symmetrical chest wall expansion. Patient is very tender to palpation across the sternum and left ribs. Gastrointestinal: Soft, Nontender, Non distended Musculoskeletal: Normal ROM, no deformity. Neurological: Alert and oriented, No focal neurological deficit observed. Psychiatric: Cooperative, appropriate mood & affect. Course Vital Signs: Vital signs: Vital Signs Temperature 97.6 F 09/13/25 11:43 Pulse Rate 86 09/13/25 11:43 Blood Pressure 138/82 09/13/25 11:43 Pulse Oximetry 97 09/13/25 11:43 Oxygen Delivery Me thod Room Air 09/13/25 11:43 MDM - Trauma Medical Decision Making Medical decision making Patient's reason for coming to the emergency room: Traumatic chest pain Social determinants: Retired. is with her. I reviewed the patient's medical record. 64-year-old female with a history of diabetes, hyperlipidemia, obstructive sleep apnea, anxiety and VALLEJO I reviewed the patient's current home meds Patient is insulin-dependent Alternate historians: None Differential diagnosis: including but not limited to and based on the above HPI, review of systems and physical exam: In this patient with traumatic low impact chest pain I would have concern for sternal contusion, rib fractures, rib contusions. Pneumothorax. Orders placed to evaluate differential diagnosis based on the above differential, HPI and physical exam Chest x-ray: No acute process. No infiltrate. No pneumothorax. This was reviewed and interpreted by myself the emergency room physician. I also reviewed the radiology report. CT of the chest: Given the patient's level of concern I did a CT to further investigate. No acute process. This was reviewed and interpreted by myself the emergency room physician. I also reviewed the radiology report. Reexamination: Patient remained stable. No increased work of breathing. No altered mental status. No focal motor deficits. Still quite tender in her chest. Assessment and plan: Chest wall contusion ?Silt. Incentive spirometer - Discharged home - Discussed plan with patient. Answered any questions. - Evaluation and treatment of this problem were appropriate in the emergency setting. Lab Data Radiology Impressions Chest X-Ray 09/13/25 11:33 IMPRESSION: No definite acute findings. CT could be considered for further evaluation if patient is symptomatic. Chest CT 09/13/25 12:29 IMPRESSION: No acute findings in the chest. All radiology interpretation(s) finalized by discharge Discharge Plan Discharge Patient Disposition: Home Clinical Impression: Sternal contusion Condition: Stable Prescriptions: New hydrocodone-acetaminophen 5-325 mg tablet 1 tab PO Q6H PRN (Reason: pain) Qty: 20 0RF polyethylene glycol 3350 [Miralax] 17 gram/dose powder 17 g PO DAILY Qty: 510 0RF Rx Instructions: Take 1 scoop daily while taking pain medications. No Action multivitamin Tablet 1 tab PO DAILY (DME) lancets [OneTouch UltraSoft Lancets] Misc See Rx Instructions .Route Qty: 200 3RF Rx Instructions: As directed cefdinir 300 mg capsule 300 mg PO BID 14 Days Qty: 28 0RF metformin 750 mg tablet extended release 24 hr 750 mg PO BID Qty: 180 1RF venlafaxine 150 mg capsule,extended release 24hr 150 mg PO QAM Qty: 90 1RF atorvastatin 40 mg tablet See Rx Instructions .ROUTE .COMPLEX Qty: 90 1RF Dose Instruction: TAKE 1 TABLET BY MOUTH EVERY DAY Rx Instructions: TAKE 1 TABLET BY MOUTH EVERY DAY (DME) OneTouch Ultra Test Strip See Rx Instructions .ROUTE .COMPLEX Qty: 100 3RF Dose Instruction: USE DIRECTED Rx Instructions: USE DIRECTED (DME) pen needle, diabetic [TechLITE Pen Needle] 31 gauge x 3/16 needle See Rx Instructions .ROUTE .COMPLEX Qty: 200 0RF Dose Instruction: USE DIRECTED Rx Instructions: USE DIRECTED levothyroxine 100 mcg tablet See Rx Instructions .ROUTE .COMPLEX Qty: 90 3RF Dose Instruction: TAKE 1 TABLET BY MOUTH EVERY DAY Rx Instructions: TAKE 1 TABLET BY MOUTH EVERY DAY Farxiga 10 mg tablet See Rx Instructions .ROUTE .COMPLEX Qty: 90 3RF Dose Instruction: TAKE 1 TABLET BY MOUTH EVERY DAY Rx Instructions: TAKE 1 TABLET BY MOUTH EVERY DAY insulin glargine [Lantus Solostar U-100 Insulin] 100 unit/mL (3 mL) insulin pen 56 unit SUBCUT BID 30 Days Qty: 30 3RF Trulicity 3 mg/0.5 mL pen injector See Rx Instructions .ROUTE .COMPLEX Qty: 2 3RF Dose Instruction: inject 3mg (0.5ml) SUBCUTANEOUSLY ONCE weekly Rx Instructions: inject 3mg (0.5ml) SUBCUTANEOUSLY ONCE weekly Discharge Orders: Discharge ED (Routine); Ordered 09/13/25 Ordered By: Jenni Hennessy Referrals: Cheryl Katz DO [Primary Care Provider, Family Practice] Discharge Diet: Usual diet Discharge Activity: Increase activity as tolerated Patient Instructions: How to Use an Incentive Spirometer (ED), Chest Contusion (ED), Opioid Safety, Pain Management, Patient Portal & Jenny Instructions Activity Restrictions/Additional Instructions: Thank you for choosing [facility] for your healthcare needs today. You have been screened and evaluated and felt safe for discharge. Health conditions do change or evolve sometimes and as such it is important that you follow up with your Primary Doctor to be re checked, 3-5 days is a general good time frame for follow up. You are always welcome to return to the ED for re assessment if your symptoms are worsening or you have new concerns Print Language: Bhutanese Coding Level of Care Code ED Junior Network Engineer for Edilberto Rapp
--- NOTE | 2025-09-13 12:29 | CTR_ITS ---
PROCEDURE INFORMATION: Exam: CT Chest Without Contrast; Diagnostic Exam date and time: 09/13/2025 12:57 PM Age: 64 years old Clinical indication: Injury or trauma; Additional info: Traumatic chest pain TECHNIQUE: Imaging protocol: Diagnostic computed tomography of the chest without contrast. Radiation optimization: All CT scans at this facility use at least one of these dose optimization techniques: automated exposure control; mA and/or kV adjustment per patient size (includes targeted exams where dose is matched to clinical indication); or iterative reconstruction. COMPARISON: CR XR chest 2V* [id number] 09/13/2025 12:03 PM RADIATION DOSE METRICS: Total DLP (mGy-cm): 586.36 FINDINGS: Thyroid: Atrophic thyroid. Lungs: Mild dependent atelectasis in bilateral lower lobes. No focal consolidation. No pulmonary mass. Small calcified left upper lobe granuloma. Pleural spaces: Unremarkable. No pneumothorax. No pleural effusion. Heart: Unremarkable. No cardiomegaly. No pericardial effusion. Coronary arteries: Multivessel coronary artery calcifications. Lymph nodes: Unremarkable. No enlarged lymph nodes. Vasculature: The thoracic aorta is nonaneurysmal with scattered atherosclerotic calcifications. Bones/joints: Mild degenerative changes of the thoracic spine. No acute or aggressive osseous lesion. Soft tissues: Unremarkable. CT/CT chest wo con [id number] IMPRESSION: No acute findings in the chest.
[2025-09-13] MEDS: HYDROcodone-acetaminophen 10-325 mg Tablet 1 TAB PO (13:27)
[2025-09-13 13:58] VITALS: BP 128/82; PULSE 70; RESP 16; O2SAT 98
== END 2025-09-13 14:01 | disposition home or self-care (01) ==
PROVIDERS: Emergency Provider Emergency Medicine; PCP Family Medicine
DX: S20.219A Contusion of unspecified front wall of thorax, initial encounter (principal); Z79.84 Long term (current) use of oral hypoglycemic drugs; Z79.4 Long term (current) use of insulin; Z79.85 Long-term (current) use of injectable non-insulin antidiabetic drugs; E11.9 Type 2 diabetes mellitus without complications; E78.5 Hyperlipidemia, unspecified; W50.0XXA Accidental hit or strike by another person, initial encounter
CPT/HCPCS: 71046; 71250; 99284; J9999

== ENCOUNTER → 2025-09-28 10:04 | Outpatient (BNVA) | payer OTHER, SELFPAY | PROVIDERS: PCP Family Medicine; Visit Provider Family Medicine | DX: E11.65 Type 2 diabetes mellitus with hyperglycemia (principal); E03.9 Hypothyroidism, unspecified | CPT/HCPCS: 80053; 82043; 83036; 84439; 84443 ==